=== PATIENT | female | born 1950 | race Caucasian/White ===

== ENCOUNTER 2020-04-07 14:56 | Emergency (ER) | payer MEDICARE ==
[~2020-04-07] VITALS: Ht 162.6 cm; Wt 110.7 kg
--- NOTE | 2020-04-07 15:18 | Emergency Department Note ---
History of Present Illnes History of Present Illness Chief Complaint: Abdominal Complaints History of Present Illness This is a 69 year old female Chief Complaint Comment Patient in from home with complaints of right lower back pain, RLQ abdominal pain and pelvic pain that started this morning. Patient reports that the pain has grown more intense over the last two hours. Patient reports a history of kidney stones and does have some burning with urination. Nausea and vomiting x1 today. VSS. No acute distress noted. Historian: Patient Arrival Mode: Car Shell Sorter Required: No Onset (how long ago): day(s) (1) Location: RLQ Quality: Sharp Radiation: Reports non-radiation Severity: moderate Onset quality: sudden Duration (how long): day(s) (1) Timing of current episode: constant Progression: worsening Chronicity: new Context: Denies recent illness, Denies recent surgery Relieving factors: none Exacerbating factors: none Associated symptoms: Reports denies other symptoms Treatments prior to arrival: none Past Medical/Family History Physician Review I have reviewed the patient's past medical and family history. Any updates have been documented here. Past Medical History Recent Fever: No Clinical Suspicion of Infectio: No New/Unexplained Change in Ment: No Past Medical History: Hypertension, Diabetes, Kidney Stones, Depression, Hyperlipedemia Other Medical History: neuropathy Past Surgical History: , Cataract Removal Other Surgery: Rotator cuff repair on right Review of Systems Review of Systems Constitutional: Reports no symptoms EENTM: Reports no symptoms Cardiovascular: Reports no symptoms Respiratory: Reports no symptoms Gastrointestinal: Reports as per HPI, Reports abdominal pain (RLQ) Genitourinary: Reports no symptoms Musculoskeletal: Reports no symptoms Integumentary: Reports no symptoms Neurological: Reports no symptoms Psychological: Reports no symptoms Endocrine: Reports no symptoms Hematological/Lymphatic: Reports no symptoms Physical Exam Related Data Allergies: Coded Allergies: Penicillins (Verified Allergy, Intermediate, itching, 04/07/20) Triage Vital Signs Vital Signs Date Time Temp Pulse Resp B/P (MAP) Pulse Ox O2 Delivery O2 Flow Rate FiO2 04/07/20 15:02 97.8 65 18 168/75 100 Room Air Vital signs reviewed: Yes Physical Exam CONSTITUTIONAL Constitutional: Present well-developed, Present well-nourished HENT HENT: Present normocephalic, Present atraumatic, Present oropharynx clear/moist, Present nose normal HENT L/R: Present left ext ear normal, Present right ext ear normal EYES Eyes: Reports PERRL, Reports conjunctivae normal NECK Neck: Present ROM normal PULMONARY Pulmonary: Present effort normal, Present breath sounds normal CARDIOVASCULAR Cardiovascular: Present regular rhythm, Present heart sounds normal, Present capillary refill normal, Present normal rate GASTROINTESTINAL Abdominal: Present soft, Present bowel sounds normal, Present tender (RLQ) GENITOURINARY Genitourinary: Present exam deferred SKIN Skin: Present warm, Present dry MUSCULOSKELETAL Musculoskeletal: Present ROM normal NEUROLOGICAL Neurological: Present alert, Present oriented x 3, Present no gross motor or sensory deficits PSYCHOLOGICAL Psychological: Present mood/affect normal, Present judgement normal Assessment & Plan Medical Decision Making MDM 69-year-old female presents the emergency department for right lower quadrant abdominal pain. She's past medical history significant for diabetes. Examination shows right lower quadrant tenderness. Initial differential significant for urinary tract infection versus kidney stone versus appendicitis among others. Workup including labs and imaging are significant for: 1. No evidence for bowel obstruction or inflammation. Normal appendix. Mild burden of diverticulosis coli. 2. Enhancing mass in the right kidney concerning for RCC. CT or MRI dedicated to the kidneys is recommended for further characterization. No evidence of metastasis. 3. Right adrenal nodule can be further characterized with CT or MRI of the kidneys. 4. Mild splenomegaly. No lymphadenopathy. Patient was provided imaging and lab results. Doubt emergent process at this time. She will f/u w/ her PCP or return to ED for new/worsening symptoms. Assessment & Plan Final Impression: (1) Abdominal pain Depart Disposition: HOME, SELF-CARE Last Vital Signs Date Time Temp Pulse Resp B/P (MAP) Pulse Ox O2 Delivery O2 Flow Rate FiO2 04/07/20 15:02 97.8 65 18 168/75 100 Room Air NAPOLEON NAVAS MD Apr 07, 2020 15:18
[2020-04-07] MEDS ORDERED: SODIUM CHLORIDE 0.9% 1000ML 1,000 ML IV STA (15:29)
[2020-04-07 15:45] LABS: BASOPHILS # (AUTO) 0.1 (0.0-0.1); BASOPHILS % 0.7 % (0.0-1.0); EOSINOPHILS # (AUTO) 0.1 (0.0-0.4); EOSINOPHILS % 1.1 % (0.0-6.0); HEMATOCRIT 41.5 % (34.2-44.1); HEMOGLOBIN 13.5 g/dL (12.0-16.0); LYMPHOCYTES # (AUTO) 1.3 (1.0-3.2); LYMPHOCYTES % 12.2 % (18.0-39.1); MEAN CORPUSCULAR HEMOGLOBIN 29.4 pg (28-32); MEAN CORPUSCULAR HGB CONC 32.5 g/dL (31-35); MEAN CORPUSCULAR VOLUME 90.4 fL (81-99); MONOCYTES # (AUTO) 0.4 (0.2-0.8); MONOCYTES % 3.5 % (4.4-11.3); NEUTROPHILS # (AUTO) 8.4 (2.1-6.9); NEUTROPHILS % 82.2 % (38.7-80.0); PLATELET COUNT 234 x10e3/uL (140-360); RED BLOOD COUNT 4.59 x10e6/uL (3.6-5.1); RED CELL DISTRIBUTION WIDTH 13.2 % (11.7-14.4)
[2020-04-07 15:51] LABS: BILIRUBIN,URINE NEGATIVE (NEGATIVE); CLARITY,URINE CLEAR (CLEAR); COLOR,URINE YELLOW (YELLOW); KETONES,URINE TRACE (NEGATIVE); LEUKOCYTE ESTERASE ,URINE NEGATIVE (NEGATIVE); NITRITE,URINE NEGATIVE (NEGATIVE); PROTEIN,URINE DIPSTICK 2+ (NEGATIVE); URINE UROBILINOGEN 0.2 mg/dL (0.2 - 1)
[2020-04-07] MEDS: ONDANSETRON HCL INJ 2MG/ML 2ML 2 MG/ML VIAL IV PRN ×2 (15:54→17:50)
[2020-04-07] MEDS: MORPHINE SULFATE INJ 4 MG/ML INJ 1ML IV PRN ×2 (15:54→17:50)
[2020-04-07 16:03] LABS: BACTERIA,URINE FEW /HPF; EPITHELIAL CELLS,URINE FEW /LPF
[2020-04-07 16:05] LABS: ALBUMIN 3.8 g/dL (3.5-5.0); ALBUMIN/GLOBULIN RATIO 1.1 (0.8-2.0); ANION GAP 15.5 mmol/L (8-16); CALCIUM 9.4 mg/dL (8.4-10.2); CREATININE, SERUM 1.12 mg/dL (0.57-1.11); POTASSIUM 4.5 mmol/L (3.5-5.1)
[2020-04-07] MEDS ORDERED: IOPAMIDOL 370 MG/ML 200 ML INFUS..BTL INJ ONE (17:27)
[2020-04-07] MEDS ORDERED: SODIUM CHLORIDE 0.9% 50ML 50 ML ONE (17:28)
--- NOTE | 2020-04-07 17:56 | Diagnostic Imaging Report ---
CT Abdomen And Pelvis with Intravenous Contrast INDICATION: ^RLQ pain ^[id number] ^[id number] TECHNIQUE: Thin collimation axial images obtained from the diaphragm to the level of the pubic symphysis following the uneventful administration of 100 cc of low osmolar, nonionic intravenous contrast. Dose reduction techniques used: Automated exposure control, adjustment of the mAs and/or kVp according to patient size, standardized low-dose protocol, and/or iterative reconstruction technique. RADIATION DOSE: Total DLP: 829 mGy*cm Estimated effective dose: (DLP x 0.015 x size factor) mSv CTDIvol has been reviewed. It is below the limits set by the Radiation Protocol Committee (RPC). COMPARISON: None. ABDOMEN FINDINGS: Lung Bases: Mild bibasilar air trapping. No infiltrates. Visualized portion of the mediastinum is normal. Liver: No evidence for mass. Gallbladder: Present and appears normal. No biliary ductal dilatation. Pancreas: Normal attenuation without mass or ductal dilatation. Spleen: Measures 14 cm in length with rather contours. No mass. Adrenal Glands: Right adrenal nodule measures 1.1 x 1.1 cm. The left adrenal gland is normal. Kidneys: Right: Normal enhancement. Enhancing mass in the anterior lower pole measures 2.0 x 1.5 cm. This is adjacent to a subcentimeter cyst. No hydronephrosis. Left: Normal enhancement. No soft tissue mass. No hydronephrosis. Lymph Nodes: No enlarged abdominal or retroperitoneal lymph nodes.. Aorta: Normal in diameter with scattered calcifications PELVIS FINDINGS: Bowel: Stomach: Normal. Small Bowel: Normal in caliber with normal wall thickness. Large Bowel: For stool in the cecum. No mural thickening or dilatation. The remainder the large bowel is collapsed. There are a few diverticula in the descending colon without associated inflammation. Appendix: Normal. Bladder: Underdistended but otherwise normal. The uterus is present and normal in morphology. No adnexal mass. Peritoneum/retroperitoneum: No free fluid or fluid collection.. Bones: Mild to moderate degenerative changes of the spine. No focal osseous lesions. IMPRESSION: 1. No evidence for bowel obstruction or inflammation. Normal appendix. Mild burden of diverticulosis coli. 2. Enhancing mass in the right kidney concerning for RCC. CT or MRI dedicated to the kidneys is recommended for further characterization. No evidence of metastasis. 3. Right adrenal nodule can be further characterized with CT or MRI of the kidneys. 4. Mild splenomegaly. No lymphadenopathy. Signed by: Dr. Agustín Mathew MD on 04/07/2020 5:52 PM
== END 2020-04-07 18:22 | disposition home or self-care (01) ==
LOC: ER 15:16
DX: R10.31 Right lower quadrant pain (principal); M54.5 Low back pain; R30.0 Dysuria; Z87.442 Personal history of urinary calculi; I10 Essential (primary) hypertension; E11.9 Type 2 diabetes mellitus without complications; E78.5 Hyperlipidemia, unspecified; F32.9 Major depressive disorder, single episode, unspecified
CPT/HCPCS: 36415; 74177; 80053; 81001; 83690; 85025; 99284; J2270; J2405; J7030; Q9967